=== PATIENT | female | born 1980 | race Caucasian/White ===

== ENCOUNTER 2022-07-21 18:37 | Inpatient (IN) | payer OTHER ==
--- NOTE | 2022-07-21 22:07 | ED ---
Skin/Abscess/FB HPI - General Chief complaint: Skin/Abscess/Foreign Body Stated complaint: abx reaction Time Seen by Provider: 07/21/22 22:05 Source: patient, RN notes reviewed, old records reviewed Mode of arrival: ambulatory Limitations: no limitations - History of Present Illness Initial comments: This is a 41-year-old female DF for evaluation. Patient unsure medical history recently released from incarceration after about 20 years. Patient continuing and complaining of severe left hip pain redness and erythema swelling. No drainage. No fevers. Patient has no known significant medical history multiple antibiotic ALLERGIES MD complaint: abscess/boil, other (Cellulitis) -: days(s) Location: LLE (() Severity: moderate Severity scale (1-10): 7 Quality: sharp, dull Consistency: constant Improves with: none Context: recent illness, other (Recent incarceration) Associated symptoms: denies other symptoms Treatments Prior to Arrival: none - Related Data Allergies Allergy/AdvReac Type Severity Reaction Status Date / Time acetaminophen [From Tylenol] Allergy Itching Verified 07/21/22 19:04 amoxicillin Allergy Anaphylaxis Verified 07/21/22 19:04 clavulanic acid Allergy Anaphylaxis Verified 07/21/22 19:04 [From Augmentin] Penicillins Allergy Anaphylaxis Verified 07/21/22 19:04 Sulfa (Sulfonamide Allergy Anaphylaxis Verified 07/21/22 19:04 Antibiotics) Review of Systems ROS Statement: Those systems with pertinent positive or pertinent negative responses have been documented in the HPI. ROS Other: All systems not noted in ROS Statement are negative. Past Medical History Past Medical History: No Reported History History of Any Multi-Drug Resistant Organisms: None Reported Past Surgical History: No Surgical Hx Reported Past Psychological History: No Psychological Hx Reported Smoking Status: Never smoker Past Alcohol Use History: None Reported Past Drug Use History: None Reported General Exam Limitations: no limitations General appearance: alert, in no apparent distress Head exam: Present: atraumatic, normocephalic, normal inspection Eye exam: Present: normal appearance, PERRL, EOMI. Absent: scleral icterus, conjunctival injection, periorbital swelling ENT exam: Present: normal exam, mucous membranes moist Neck exam: Present: normal inspection. Absent: tenderness, meningismus, lymphadenopathy Respiratory exam: Present: normal lung sounds bilaterally. Absent: respiratory distress, wheezes, rales, rhonchi, stridor Cardiovascular Exam: Present: regular rate, normal rhythm, normal heart sounds. Absent: systolic murmur, diastolic murmur, rubs, gallop, clicks GI/Abdominal exam: Present: soft, normal bowel sounds. Absent: distended, tenderness, guarding, rebound, rigid Extremities exam: Present: normal inspection, full ROM, normal capillary refill, other (Patient does have significant cellulitis and erythema and swelling to left hip, concern for infection). Absent: tenderness, pedal edema, joint swelling, calf tenderness Back exam: Present: normal inspection Neurological exam: Present: alert, oriented X3, CN II-XII intact Psychiatric exam: Present: normal affect, normal mood Skin exam: Present: warm, dry, intact, normal color. Absent: rash Course Vital Signs 07/21/22 19:01 Temperature 99 F Pulse Rate 96 Respiratory 18 Rate Blood Pressure 132/88 O2 Sat by Pulse 98 Oximetry - Reevaluation(s) Reevaluation #1: 07/22/22 00:51 Medical record is reviewed Reevaluation #2: 07/22/22 00:51 Patient symptoms are improved Reevaluation #3: 07/22/22 00:51 Patient informed results and questions answered - Consultations Consultation #1: Spoke with sound who will admit this patient Medical Decision Making - Medical Decision Making 41 female to the emergency department, patient presents today with left hip pain, cellulitis redness and erythema, left hip abscess. Will be admitted for IV antibiotics and surgical consult - Lab Data Result diagrams: 07/21/22 23:15 07/21/22 23:15 Lab Results 07/21/22 07/21/22 07/21/22 Range/Units 23:15 23:15 23:15 WBC 15.3 H (3.8-10.6) k/uL RBC 4.18 (3.80-5.40) m/uL Hgb 13.1 (11.4-16.0) gm/dL Hct 39.2 (34.0-46.0) % MCV 93.7 (80.0-100.0) fL MCH 31.3 (25.0-35.0) pg MCHC 33.4 (31.0-37.0) g/dL RDW 12.7 (11.5-15.5) % Plt Count 213 (150-450) k/uL MPV 9.1 Neutrophils % 71 % Lymphocytes % 17 % Monocytes % 6 % Eosinophils % 4 % Basophils % 1 % Neutrophils # 10.8 H (1.3-7.7) k/uL Lymphocytes # 2.6 (1.0-4.8) k/uL Monocytes # 0.9 (0-1.0) k/uL Eosinophils # 0.6 (0-0.7) k/uL Basophils # 0.1 (0-0.2) k/uL PT 10.3 (9.0-12.0) sec INR 0.9 (<1.2) APTT 25.1 (22.0-30.0) sec Sodium 140 (137-145) mmol/L Potassium 3.8 (3.5-5.1) mmol/L Chloride 106 (98-107) mmol/L Carbon Dioxide 23 (22-30) mmol/L Anion Gap 11 mmol/L BUN 15 (7-17) mg/dL Creatinine 0.75 (0.52-1.04) mg/dL Est GFR (CKD-EPI)AfAm >90 (>60 ml/min/1.73 sqM) Est GFR (CKD-EPI)NonAf >90 (>60 ml/min/1.73 sqM) Glucose 105 H (74-99) mg/dL Plasma Lactic Acid Yeison (0.7-2.0) mmol/L Calcium 9.2 (8.4-10.2) mg/dL Phosphorus 4.5 (2.5-4.5) mg/dL Magnesium 1.7 (1.6-2.3) mg/dL Total Bilirubin 0.5 (0.2-1.3) mg/dL AST 22 (14-36) U/L ALT 26 (4-34) U/L Alkaline Phosphatase 123 (38-126) U/L Total Protein 7.2 (6.3-8.2) g/dL Albumin 4.0 (3.5-5.0) g/dL 07/21/22 Range/Units 23:15 WBC (3.8-10.6) k/uL RBC (3.80-5.40) m/uL Hgb (11.4-16.0) gm/dL Hct (34.0-46.0) % MCV (80.0-100.0) fL MCH (25.0-35.0) pg MCHC (31.0-37.0) g/dL RDW (11.5-15.5) % Plt Count (150-450) k/uL MPV Neutrophils % % Lymphocytes % % Monocytes % % Eosinophils % % Basophils % % Neutrophils # (1.3-7.7) k/uL Lymphocytes # (1.0-4.8) k/uL Monocytes # (0-1.0) k/uL Eosinophils # (0-0.7) k/uL Basophils # (0-0.2) k/uL PT (9.0-12.0) sec INR (<1.2) APTT (22.0-30.0) sec Sodium (137-145) mmol/L Potassium (3.5-5.1) mmol/L Chloride (98-107) mmol/L Carbon Dioxide (22-30) mmol/L Anion Gap mmol/L BUN (7-17) mg/dL Creatinine (0.52-1.04) mg/dL Est GFR (CKD-EPI)AfAm (>60 ml/min/1.73 sqM) Est GFR (CKD-EPI)NonAf (>60 ml/min/1.73 sqM) Glucose (74-99) mg/dL Plasma Lactic Acid Yeison 0.5 L (0.7-2.0) mmol/L Calcium (8.4-10.2) mg/dL Phosphorus (2.5-4.5) mg/dL Magnesium (1.6-2.3) mg/dL Total Bilirubin (0.2-1.3) mg/dL AST (14-36) U/L ALT (4-34) U/L Alkaline Phosphatase (38-126) U/L Total Protein (6.3-8.2) g/dL Albumin (3.5-5.0) g/dL - EKG Data -: EKG Interpreted by Me (EKG sinus rhythm 68 OH 148 QRS 89 QTC 424) - Radiology Data Radiology results: report reviewed (CT pelvis left hip negative for significant abscess or fluid collection), image reviewed Disposition Clinical Impression: Abscess of left hip, Cellulitis of left hip Disposition: ADMITTED IP TO THIS [facility] Condition: Fair Is patient prescribed a controlled substance at d/c from ED?: No Referrals: None,Stated [Primary Care Provider] - 1-2 days Time of Disposition: 00:50
[2022-07-21] MEDS ORDERED: ACETAMINOPHEN TAB 500 MG TAB PO STA (22:17)
[2022-07-21] MEDS ORDERED: SODIUM CHLORIDE 0.9% 500 ML 500 ML IV STA (22:17)
[2022-07-21] MEDS ORDERED: SODIUM CHLORIDE 0.9% 1,000 ML IV STA (22:17)
[2022-07-21] MEDS ORDERED: VANCOMYCIN IV PER PHARMACY 1 EACH MISC MISCELLANE PRN (22:18)
[2022-07-21 23:34] LABS: Basophils # (A) 0.1 k/uL (0-0.2); Basophils % (A) 1 %; Eosinophils # (A) 0.6 k/uL (0-0.7); Eosinophils % (A) 4 %; HCT 39.2 % (34.0-46.0); HGB 13.1 gm/dL (11.4-16.0); Lymphocytes # (A) 2.6 k/uL (1.0-4.8); Lymphocytes % (A) 17 %; MCH 31.3 pg (25.0-35.0); MCHC 33.4 g/dL (31.0-37.0); MCV 93.7 fL (80.0-100.0); Mean Platelet Volume 9.1; Monocytes # (A) 0.9 k/uL (0-1.0); Monocytes % (A) 6 %; Neutrophils # (A) 10.8 k/uL (1.3-7.7); Neutrophils % (A) 71 %; Platelet Count 213 k/uL (150-450); RBC 4.18 m/uL (3.80-5.40); RDW 12.7 % (11.5-15.5); WBC 15.3 k/uL (3.8-10.6)
[2022-07-21 23:47] LABS: ALT 26 U/L (4-34); AST 22 U/L (14-36); African American GFR (CKD) >90 (>60 ml/min/1.73 sqM); Alkaline Phosphatase 123 U/L (38-126); Anion Gap 11 mmol/L; Blood Urea Nitrogen 15 mg/dL (7-17); Calcium 9.2 mg/dL (8.4-10.2); Carbon Dioxide 23 mmol/L (22-30); Chloride 106 mmol/L (98-107); Glucose 105 mg/dL (74-99); Magnesium 1.7 mg/dL (1.6-2.3); Non-African American GFR(CKD) >90 (>60 ml/min/1.73 sqM); Phosphorus 4.5 mg/dL (2.5-4.5); Potassium 3.8 mmol/L (3.5-5.1); Sodium 140 mmol/L (137-145); Total Bilirubin 0.5 mg/dL (0.2-1.3); Total Protein 7.2 g/dL (6.3-8.2)
[2022-07-21 23:54] LABS: INR 0.9 (<1.2); Partial Thromboplastin Time 25.1 sec (22.0-30.0); Prothrombin Time 10.3 sec (9.0-12.0)
[2022-07-22] MEDS ORDERED: VANCOMYCIN 1,500 MG in SODIUM CHLORIDE 0.9% 250 ML IVPB ONE ×2
--- NOTE | 2022-07-22 00:34 | CT ---
EXAMINATION TYPE: CT pelvis w con DATE OF EXAM: 07/22/2022 COMPARISON: None HISTORY: Left hip abscess. no prior on PACS CT DLP: 1009.4 mGycm Automated exposure control for dose reduction was used. CONTRAST: Performed with IV Contrast, patient injected with 100ml mL of Isovue 300. Images obtained from the iliac crests to the subtrochanteric femurs with the IV contrast. Appendix appears normal. No free fluid in the pelvis. Uterus is anteverted. No pelvic mass. Bladder d istends smoothly. No inguinal hernia there is some mild fat stranding in the left inguinal region wit h a few prominent left inguinal lymph nodes. These measure up to 1.6 cm. Sigmoid colon and rectum johnson ear normal. There is some subcutaneous edema over the posterior lateral left buttock. This area not entirely incl uded on the exam. Exam limited by patient's size. There is mild subcutaneous edema lateral to the lef t iliac bone. The hip joints are intact. Pelvic muscles are symmetric. Bony structures are intact. IMPRESSION: Mild subcutaneous edema in the left inguinal region and lateral left side of the pelvis. No drainable fluid collection. Limited exam
[2022-07-22] MEDS ORDERED: ACETAMINOPHEN TAB 325 MG TAB PO PRN (00:48)
[2022-07-22] MEDS ORDERED: MORPHINE SULFATE 4 MG/ML SYRINGE IV PRN (00:48)
[2022-07-22] MEDS ORDERED: ONDANSETRON 4 MG/2 ML VIAL IVP PRN (00:48)
[2022-07-22] MEDS ORDERED: NALOXONE 0.4 MG/ML 1 ML VIAL IV PRN (00:48)
[2022-07-22] MEDS: SODIUM CHLORIDE 0.9% 1,000 ML IV SCH ×3 (02:10→22:24)
[2022-07-22] MEDS ORDERED: VANCOMYCIN IV PER PHARMACY 1 EACH MISC MISCELLANE PRN (09:47)
--- NOTE | 2022-07-22 10:25 | P.HPIM ---
History of Present Illness 41-year-old pleasant female came in with complaints of pain and redness in the left hip area and left buttock area there is a significant induration and abscess in that area patient denied any fever chills. Patient does have some le ukocytosis. Patient denied any history of IV drug use or any trauma. Patient believes it secondary to spider bites. Patient was a incarcerated and was released recently from correction after 20 years. Patient denied any drug abuse history alcohol or nicotine use history REVIEW OF SYSTEMS: CONSTITUTIONAL: No fever, no malaise, no fatigue. HEENT: No recent visual problems or hearing problems. Denied any sore throat. CARDIOVASCULAR: No chest pain, orthopnea, PND, no palpitations, no syncope. PULMONARY: No shortness of breath, no cough, no hemoptysis. GASTROINTESTINAL: No diarrhea, no nausea, no vomiting, no abdominal pain. NEUROLOGICAL: No headaches, no weakness, no numbness. HEMATOLOGICAL: Denies any bleeding or petechiae. GENITOURINARY: Denies any burning micturition, frequency, or urgency. MUSCULOSKELETAL/RHEUMATOLOGICAL: Denies any joint pain, swelling, or any muscle pain. ENDOCRINE: Denies any polyuria or polydipsia. The rest of the 14-point review of systems is negative. PHYSICAL EXAMINATION: GENERAL: The patient is alert and oriented x3, not in any acute distress. Well developed, well nourished. HEENT: Pupils are round and equally reacting to light. EOMI. No scleral icterus. No conjunctival pallor. Normocephalic, atraumatic. No pharyngeal erythema. No thyromegaly. CARDIOVASCULAR: S1 and S2 present. No murmurs, rubs, or gallops. PULMONARY: Chest is clear to auscultation, no wheezing or crackles. ABDOMEN: Soft, nontender, nondistended, normoactive bowel sounds. No palpable organomegaly. MUSCULOSKELETAL: No joint swelling or deformity. EXTREMITIES: No cyanosis, clubbing, or pedal edema. NEUROLOGICAL: Gross neurological examination did not reveal any focal deficits. SKIN: Abscess in the left hip with in duration as mentioned above Assessment and plan -Left hip abscess will need the surgical drainage, general surgery was consulted patient was started on vancomycin as patient is ALLERGIC to penicillin -Hypothyroidism continue levothyroxine -Patient is on Keppra unsure whether patient has seizure disorder. DVT prophylaxis: Early ambulation Past Medical History Past Medical History: No Reported History History of Any Multi-Drug Resistant Organisms: None Reported Past Surgical History: No Surgical Hx Reported Past Psychological History: No Psychological Hx Reported Smoking Status: Never smoker Past Alcohol Use History: None Reported Past Drug Use History: None Reported Medications and Allergies Home Medications Medication Instructions Recorded Confirmed Type Famotidine [Pepcid] 10 mg PO DAILY 07/22/22 07/22/22 History Ibuprofen [Motrin] 400 mg PO DAILY PRN 07/22/22 07/22/22 History Levothyroxine Sodium 112 mcg PO DAILY 07/22/22 07/22/22 History levETIRAcetam [Keppra] 500 mg PO Q12HR 07/22/22 07/22/22 History Allergies Allergy/AdvReac Type Severity Reaction Status Date / Time acetaminophen [From Tylenol] Allergy Itching Verified 07/21/22 19:04 amoxicillin Allergy Anaphylaxis Verified 07/21/22 19:04 clavulanic acid Allergy Anaphylaxis Verified 07/21/22 19:04 [From Augmentin] Penicillins Allergy Anaphylaxis Verified 07/21/22 19:04 Sulfa (Sulfonamide Allergy Anaphylaxis Verified 07/21/22 19:04 Antibiotics) Physical Exam Vitals: Vital Signs Temp Pulse Resp BP Pulse Ox 07/22/22 06:43 65 16 107/73 96 07/22/22 04:23 98.0 F 87 105/78 94 L 07/21/22 19:01 99 F 96 18 132/88 98 Intake and Output 07/21/22 07/22/22 07/22/22 22:59 06:59 14:59 Other: Weight 90.718 kg Results CBC & Chem 7: 07/21/22 23:15 07/21/22 23:15 Labs: Abnormal Lab Results - Last 24 Hours (Table) 07/21/22 07/21/22 07/21/22 Range/Units 23:15 23:15 23:15 WBC 15.3 H (3.8-10.6) k/uL Neutrophils # 10.8 H (1.3-7.7) k/uL Glucose 105 H (74-99) mg/dL Plasma Lactic Acid Yeison 0.5 L (0.7-2.0) mmol/L
[2022-07-22] MEDS: levETIRAcetam 500 MG TAB PO SCH ×2 (10:43→22:24)
[2022-07-22] MEDS: LEVOTHYROXINE 112 MCG TAB PO SCH (10:43)
[2022-07-22] MEDS ORDERED: VANCOMYCIN 1,250 MG in SODIUM CHLORIDE 0.9% 250 ML IVPB SCH (12:00)
[2022-07-22] MEDS ORDERED: LIDOCAINE 1% INJ 10MG/ML (20 ML MDV) SQ ONE (12:36)
[2022-07-22] MEDS ORDERED: MORPHINE SULFATE 4 MG/ML SYRINGE IVP STA (12:39)
[2022-07-22] MEDS ORDERED: LORazepam 2 MG/ML INJ IV STA (12:40)
--- NOTE | 2022-07-22 12:54 | P.CON ---
Consult Note - . Consult date: 07/22/22 Assessment/Plan:: 41-year-old female chief complaint of pain and swelling and drainage at the left hip HPI; patient states she began noticing some redness and discomfort in the left hip area approximately 6 days ago. Patient believes she may have had a spider bite in this area. Patient denies any other known trauma or history of drug injection. This became progressively worse, patient was seen in a in a local urgent care and begun on doxycycline. Patient states this did not improve and was seen in the emergency department at our hospital last evening. Patient had a CAT scan which showed which did not reveal any deeper extension or underlying pathology. PMH; hypothyroid, possible seizure disorder PSH; no reported Medications; patient is currently on vancomycin, she received ceftriaxone in the emergency department. Physical exam: HEENT: Normocephalic, sclerae nonicteric Chest: Clear to auscultation Heart: Regular rate and rhythm Abdomen: [Nontender, nondistended] Extremities: Positive for erythema and slight fluctuance noted on the L anterior-lateral hip. small (1.5 cm) open area w small amount of purulent drainage Neuro: Alert and oriented Labs; hemoglobin 13, WBCs 15 plt 213 Cultures pending Assessment; 41-year-old female with small abscess on left hip, cellulitis Plan; we'll perform bedside I&D, under local with IV light sedation. Cultures previously obtained Continue antibiotics per your direction We'll follow
--- NOTE | 2022-07-22 13:36 | P.PCN ---
Date of Procedure: 07/22/22 Preoperative Diagnosis: Abscess left thigh Postoperative Diagnosis: Abscess left thigh Procedure(s) Performed: Incision and drainage Anesthesia: local Surgeon: Armani Patton Estimated Blood Loss (ml): 2 IV fluids (ml): 50 Pathology: none sent Condition: stable Disposition: no change Indications for Procedure: 41-year-old female admitted via the emergency department last evening, 4 small abscess of the left hip with surrounding cellulitis. Operative Findings: Small amount of purulent fluid Description of Procedure: With patient permission the left hip area was prepped and draped in a sterile fashion. 1% Xylocaine was injected in the area of the abscess. The patient received 4 mg of morphine IV, and 2 mg of Ativan prior to the procedure. A small skin incision was made over the surrounding area, a small elipse of skin was excised to facilitate drainage. A small amount of purulent fluid was noted. Using fluff gauze the wound was packed lightly and then covered. The patient tolerated the procedure well and wound care instructions were given to the nursing staff.
[2022-07-22] MEDS: FAMOTIDINE 20 MG TAB PO SCH (22:23)
--- NOTE | 2022-07-22 22:51 | P.CONS ---
History of Present Illness - Reason for Consult Consult date: 07/22/22 - History of Present Illness Patient is a 41-year-old female recently released from [facility] few days ago presenting to the hospital last evening for evaluation of painful swelling to the left hip and left gluteal area patient mention it started when she was in the present and has gotten bigger in size becoming more painful patient described the pain to be more of a sharp in nature intensity is almost 9 out of 10 with no radiation patient on presentation to the hospital did have low-grade fever of 99 daily for an height patient white count 15.3 with a left shift kidney function has been normal liver enzymes are normal patient did have a pelvic CT completed mild subcutaneous edema in the left inguinal region and lateral left side of the pelvis no drainable abscess patient was evaluated by general surgery and the patient is status post drainage of the left thigh abscess cultures have been obtained patient started on vancomycin and Rocephin infectious disease was consulted for further management of antibiotic therapy Past Medical History Past Medical History: Seizure Disorder, Thyroid Disorder Additional Past Medical History / Comment(s): hypothyroid. seizure last one 07/19/22. History of Any Multi-Drug Resistant Organisms: None Reported Past Surgical History: No Surgical Hx Reported Past Anesthesia/Blood Transfusion Reactions: No Reported Reaction Past Psychological History: No Psychological Hx Reported Smoking Status: Never smoker Past Alcohol Use History: None Reported Past Drug Use History: None Reported Medications and Allergies Home Medications Medication Instructions Recorded Confirmed Type Doxycycline Hyclate 100 mg PO BID 07/22/22 07/22/22 History Famotidine [Pepcid] 10 mg PO BID PRN 07/22/22 07/22/22 History Ibuprofen [Motrin] 400 mg PO DAILY PRN 07/22/22 07/22/22 History Lactate Enzyme Caps 1 cap PO DAILY PRN 07/22/22 07/22/22 History Levothyroxine Sodium 112 mcg PO DAILY 07/22/22 07/22/22 History levETIRAcetam [Keppra] 500 mg PO Q12H 07/22/22 07/22/22 History Allergies Allergy/AdvReac Type Severity Reaction Status Date / Time acetaminophen [From Tylenol] Allergy Rash/Hives Verified 07/22/22 11:15 amoxicillin Allergy Anaphylaxis Verified 07/22/22 11:15 clavulanic acid Allergy Anaphylaxis Verified 07/22/22 11:15 [From Augmentin] codeine Allergy Unknown Verified 07/22/22 11:15 erythromycin base Allergy Anaphylaxis Verified 07/22/22 11:15 [From Erythrocin] Penicillins Allergy Anaphylaxis Verified 07/22/22 11:15 Sulfa (Sulfonamide Allergy Anaphylaxis Verified 07/22/22 11:15 Antibiotics) Physical Exam Vitals: Vital Signs Temp Pulse Pulse Resp BP BP Pulse Ox 07/22/22 14:00 78 18 07/22/22 11:27 98.6 F 78 18 128/86 99 07/22/22 06:43 65 16 107/73 96 07/22/22 04:23 98.0 F 87 105/78 94 L 07/21/22 19:01 99 F 96 18 132/88 98 Intake and Output 07/22/22 07/22/22 07/22/22 06:59 14:59 22:59 Other: Voiding Method Toilet # Voids 2 Weight 90.718 kg Results CBC & Chem 7: 07/21/22 23:15 07/21/22 23:15 Labs: Abnormal Lab Results - Last 24 Hours (Table) 07/21/22 07/21/22 07/21/22 Range/Units 23:15 23:15 23:15 WBC 15.3 H (3.8-10.6) k/uL Neutrophils # 10.8 H (1.3-7.7) k/uL Glucose 105 H (74-99) mg/dL Plasma Lactic Acid Yeison 0.5 L (0.7-2.0) mmol/L Assessment and Plan Plan: 1patient presented hospital with a left thigh abscess and cellulitis with the symptom started when the patient was imprisoned incarcerated concern for possible MRSA due to the likely pathogen s/p drainage and cultures are currently pending 2-patient with multiple antibiotic allergies that would limit the number of anti biotics safe to use 3-patient to continue with the vancomycin for mistress while waiting for the cul ture to finalize We will follow on clinical condition and cultures to further adjust medication if needed Thank you for this consultation will follow this patient along with you Time with Patient: Greater than 30
[2022-07-23 06:37] LABS: African American GFR (CKD) >90 (>60 ml/min/1.73 sqM); Anion Gap 11 mmol/L; Blood Urea Nitrogen 10 mg/dL (7-17); Calcium 8.7 mg/dL (8.4-10.2); Carbon Dioxide 22 mmol/L (22-30); Chloride 106 mmol/L (98-107); Glucose 92 mg/dL (74-99); Non-African American GFR(CKD) >90 (>60 ml/min/1.73 sqM); Potassium 4.1 mmol/L (3.5-5.1); Sodium 139 mmol/L (137-145)
[2022-07-23] MEDS: FAMOTIDINE 20 MG TAB PO SCH ×2 (08:36→20:17)
[2022-07-23] MEDS: levETIRAcetam 500 MG TAB PO SCH ×2 (08:36→20:17)
[2022-07-23] MEDS ORDERED: FAMOTIDINE 20 MG TAB PO SCH (09:00)
[2022-07-23] MEDS ORDERED: VANCOMYCIN 1,250 MG in SODIUM CHLORIDE 0.9% 250 ML IVPB SCH (09:00)
[2022-07-23 09:39] LABS: Basophils # (A) 0.03 X 10*3/uL (0.00-0.10); Basophils % (A) 0.3 %; Eosinophils # (A) 0.49 X 10*3/uL (0.04-0.35); Eosinophils % (A) 5.2 %; HCT 38.1 % (37.2-46.3); HGB 12.8 g/dL (12.0-15.0); Immature Grans, Automated 0.3 %; Lymphocytes % (A) 20.1 %; MCH 31.5 pg (27.0-32.0); MCHC 33.6 g/dL (32.0-37.0); MCV 93.8 fL (80.0-97.0); Mean Platelet Volume 11.9 fL (9.5-12.2); Monocytes # (A) 0.75 X 10*3/uL (0.20-1.00); NRBC Per 100 WBC 0 /100 WBCS (0.0-0.0); Neutrophils # (A) 6.23 X 10*3/uL (1.80-7.70); Neutrophils % (A) 66.1 %; Platelet Count 235 X 10*3/uL (140-440); RBC 4.06 X 10*6/uL (4.10-5.20); WBC 9.43 X 10*3/uL (4.50-10.00)
[2022-07-23] MEDS: diphenhydrAMINE 25 MG CAP PO PRN (12:50)
--- NOTE | 2022-07-23 12:51 | P.PN ---
Subjective Progress Note Date: 07/23/22 Principal diagnosis: Left thigh abscess and cellulitis Patient is a 41-year-old female recently [facility] developing possible folliculitis which has developed into an abscess to the left lateral thigh that has been surgically drained and the cultures currently pending. On today's evaluation that is 07/23/2022, the patient denies having any fever or any chills, still complaining of pain to the left lateral thigh area but no worsening no chest pain shortness of breath or cough no abdominal pain no diarrhea Objective - Vital Signs Vital signs: Vital Signs Temp 98.1 F 07/23/22 07:00 Pulse 85 07/23/22 08:00 Resp 15 07/23/22 08:00 BP 113/75 07/23/22 07:00 Pulse Ox 97 07/23/22 07:00 FiO2 Intake & Output 07/22/22 07/23/22 07/23/22 18:59 06:59 18:59 Intake Total 300 300 Balance 300 300 Weight 90.718 kg Intake: Oral 300 300 Other: Voiding Method Toilet Toilet Toilet # Voids 2 3 - Exam GENERAL DESCRIPTION: A middle-aged female lying in bed in no distress RESPIRATORY SYSTEM: Unlabored breathing , decreased breath sounds at bases HEART: S1 S2 regular rate and rhythm , ABDOMEN: Soft , no tenderness EXTREMITIES: Left lateral thigh with a wound from surgical drainage of the abscess some surrounding redness but no fluctuation - Labs CBC & Chem 7: 07/23/22 05:57 07/23/22 05:57 Labs: Abnormal Lab Results - Last 24 Hours (Table) 07/23/22 Range/Units 05:57 RBC 4.06 L (4.10-5.20) X 10*6/uL Eosinophils # 0.49 H (0.04-0.35) X 10*3/uL Microbiology - Last 24 Hours (Table) 07/22/22 11:00 Gram Stain - Preliminary Hip - Left Wound Culture - Preliminary Presumptive MRSA 07/21/22 23:15 Blood Culture - Preliminary Blood No Growth after 24 hours 07/22/22 11:00 Anaerobic Culture - Preliminary Hip - Left Assessment and Plan (1) Abscess of left hip Current Visit: Yes Status: Acute Code(s): L02.416 - CUTANEOUS ABSCESS OF LEFT LOWER LIMB SNOMED Code(s): 373554 (2) Cellulitis of left hip Current Visit: Yes Status: Acute Code(s): L03.116 - CELLULITIS OF LEFT LOWER LIMB SNOMED Code(s): 21381510091859503 Plan: 1patient presented hospital with a left thigh abscess and cellulitis with the symptom started when the patient was imprisoned incarcerated concern for possible MRSA due to the likely pathogen s/p drainage and cultures are currently pending 2-patient with multiple antibiotic allergies that would limit the number of antibiotics safe to use 3-patient to continue with the vancomycin for Arlen to dose while waiting for cultures to finalize Time with Patient: Less than 30
[2022-07-23] MEDS: SODIUM CHLORIDE 0.9% 1,000 ML IV SCH ×2 (12:52→23:15)
[2022-07-23] MEDS: VANCOMYCIN 1,250 MG in SODIUM CHLORIDE 0.9% 250 ML IVPB SCH (16:36)
[2022-07-23] MEDS ORDERED: IBUPROFEN 600 MG TAB PO PRN (20:26)
--- NOTE | 2022-07-23 22:44 | P.PN ---
Subjective Progress Note Date: 07/23/22 41-year-old pleasant female came in with complaints of pain and redness in the left hip area and left buttock area there is a significant induration and abscess in that area patient denied any fever chills. Patient does have some leukocytosis. Patient denied any history of IV drug use or any trauma. Patient believes it secondary to spider bites. Patient was a incarcerated and was released recently from [facility] after 20 years. Patient denied any drug abuse history alcohol or nicotine use history 07/23/2022 Patient is seen in follow up this morning with general surgery Dr. Patton and ID following. Patient is status post bedside I and D with cultures obtained. Awaiting finalized cultures. Patient wbc is improved and afebrile. Patient is continued on IV ceftriaxone and vanco. Continued purulent drainage from the site and needs repacking. Patient with redness and sensitivity around the abscess site and recommend to tye the area with marker for close monitoring. Patient reporting some generalized itching with multiple little irritations all over the body, mostly abdomen and buttock area that patient reports has been since assisted and she has been itching and picking at. Will add benadryl and encouraged the patient to refrain from scratching. Patient denies nausea or vomiting and is gamaliel erating diet. Encouraged increased activity as tolerated. Patient denies chest pain or shortness of breath. REVIEW OF SYSTEMS: CONSTITUTIONAL: No fever, no malaise, no fatigue. CARDIOVASCULAR: No chest pain, orthopnea, PND, no palpitations, no syncope. PULMONARY: No shortness of breath, no cough, no hemoptysis. GASTROINTESTINAL: No diarrhea, no nausea, no vomiting, no abdominal pain. NEUROLOGICAL: No headaches, no weakness, no numbness. PHYSICAL EXAMINATION: GENERAL: The patient is alert and oriented x3, not in any acute distress. Well developed, well nourished. HEENT: Pupils are round and equally reacting to light. EOMI. No scleral icterus. No conjunctival pallor. Normocephalic, atraumatic. No pharyngeal erythema. No thyromegaly. CARDIOVASCULAR: S1 and S2 present. No murmurs, rubs, or gallops. PULMONARY: Chest is clear to auscultation, no wheezing or crackles. ABDOMEN: Soft, nontender, nondistended, normoactive bowel sounds. No palpable organomegaly. MUSCULOSKELETAL: No joint swelling or deformity. EXTREMITIES: No cyanosis, clubbing, or pedal edema. NEUROLOGICAL: Gross neurological examination did not reveal any focal deficits. SKIN: Abscess in the left hip with in duration as mentioned above Assessment: -Left hip abscess post surgical bedside drainage with cultures obtained -leukocytosis secondary to above, improved -Hypothyroidism -Patient is on Keppra unsure whether patient has seizure disorder. Continue for now -DVT prophylaxis: Early ambulation -Full code Plan: Patient to continue on IV abx with ID following and currently on vanco as well as ceftriaxone and awaiting finalized cultures. Patient is status post I&D of the left hip abscess from general surgery Dr. Patton Patient with itching and will add benadryl and encouraged the patient to avoid picking and scratching at the skin Recommend local wound care and changing the dressing and also using paper tape as the dressing was taped directly to the area of discomfort and redness around the abscess. Recommend marking the site with a marker and monitoring closely for any worsening of redness or induration Patient will require more than 2 night hospitalization to determine discharge antibiotics. Recommend repeat labs Social work/case management to follow in the event of requiring IV abx on discharge. The impression and plan of care has been dictated by Sona Luna, Nurse Practitioner as directed. Dr. Shira MD I have performed a history and examination and MDM of this patient, discussed the same with the dictator, and agree with the dictator's assessment and plan as written ,documented as a scribe. Based on total visit time, I have performed more than 50% of the visit. Objective - Vital Signs Vital signs: Vital Signs Temp 98.1 F 07/23/22 07:00 Pulse 85 07/23/22 08:00 Resp 15 07/23/22 08:00 BP 113/75 07/23/22 07:00 Pulse Ox 97 07/23/22 07:00 FiO2 Intake & Output 07/22/22 07/23/22 07/23/22 18:59 06:59 18:59 Intake Total 300 300 Balance 300 300 Weight 90.718 kg Intake: Oral 300 300 Other: Voiding Method Toilet Toilet Toilet # Voids 2 3 - Labs CBC & Chem 7: 07/23/22 05:57 07/23/22 05:57 Labs: Abnormal Lab Results - Last 24 Hours (Table) 07/23/22 Range/Units 05:57 RBC 4.06 L (4.10-5.20) X 10*6/uL Eosinophils # 0.49 H (0.04-0.35) X 10*3/uL Microbiology - Last 24 Hours (Table) 07/22/22 11:00 Gram Stain - Preliminary Hip - Left Wound Culture - Preliminary 07/21/22 23:15 Blood Culture - Preliminary Blood No Growth after 24 hours 07/22/22 11:00 Anaerobic Culture - Preliminary Hip - Left
[2022-07-24] MEDS: VANCOMYCIN 1,250 MG in SODIUM CHLORIDE 0.9% 250 ML IVPB SCH ×2 (00:26→09:32)
[2022-07-24] MEDS: LEVOTHYROXINE 112 MCG TAB PO SCH (05:30)
[2022-07-24] MEDS ORDERED: VANCOMYCIN TROUGH DUE 1 EACH MISC MISCELLANE ONE (08:00)
[2022-07-24 08:42] LABS: Basophils % (A) 1 %; Eosinophils # (A) 0.5 k/uL (0-0.7); Eosinophils % (A) 7 %; HCT 41.3 % (34.0-46.0); HGB 13.3 gm/dL (11.4-16.0); Lymphocytes # (A) 1.5 k/uL (1.0-4.8); Lymphocytes % (A) 20 %; MCH 30.6 pg (25.0-35.0); MCHC 32.2 g/dL (31.0-37.0); MCV 95.1 fL (80.0-100.0); Mean Platelet Volume 8.7; Monocytes # (A) 0.5 k/uL (0-1.0); Monocytes % (A) 7 %; Neutrophils # (A) 4.9 k/uL (1.3-7.7); Neutrophils % (A) 65 %; Platelet Count 235 k/uL (150-450); RBC 4.34 m/uL (3.80-5.40); RDW 12.8 % (11.5-15.5); WBC 7.5 k/uL (3.8-10.6)
[2022-07-24 08:55] LABS: African American GFR (CKD) >90 (>60 ml/min/1.73 sqM); Non-African American GFR(CKD) >90 (>60 ml/min/1.73 sqM)
[2022-07-24 08:57] LABS: African American GFR (CKD) >90 (>60 ml/min/1.73 sqM); Anion Gap 12 mmol/L; Blood Urea Nitrogen 15 mg/dL (7-17); Calcium 8.7 mg/dL (8.4-10.2); Carbon Dioxide 24 mmol/L (22-30); Chloride 105 mmol/L (98-107); Glucose 103 mg/dL (74-99); Magnesium 1.8 mg/dL (1.6-2.3); Non-African American GFR(CKD) >90 (>60 ml/min/1.73 sqM); Potassium 3.9 mmol/L (3.5-5.1); Sodium 141 mmol/L (137-145)
[2022-07-24 08:59] VITALS: BP 125/81; PULSE 81; RESP 18; TEMP 98.2
[2022-07-24] MEDS: levETIRAcetam 500 MG TAB PO SCH (09:32)
[2022-07-24] MEDS: FAMOTIDINE 20 MG TAB PO SCH (09:32)
[2022-07-24] MEDS: diphenhydrAMINE 25 MG CAP PO PRN (14:41)
--- NOTE | 2022-07-25 15:58 | P.DS ---
Providers Date of admission: 07/23/22 14:31 Expected date of discharge: 07/24/22 Attending physician: Tim Reich Consults: 07/22/22 00:48 Consult Physician Routine Consulting Provider: Armani Patton Consult Reason/Comments: abscess,cellulitis Do you want consulting provider notified?: Yes 07/22/22 09:45 Consult Physician Routine Consulting Provider: Meghan Das Consult Reason/Comments: abscess Do you want consulting provider notified?: Yes Primary care physician: Stated None Hospital Course: Final diagnosis -Left hip abscess post surgical bedside drainage with cultures showing MRSA -leukocytosis secondary to above, improved -Hypothyroidism -Patient is on Keppra unsure whether patient has seizure disorder. -DVT prophylaxis -Full code Discharge disposition Patient is being discharged in a stable condition with guarded prognosis to home. Patient will follow-up with Dr. Portillo to establish in the outpatient setting upon discharge. Patient is to follow-up with general surgery Dr. Wolf along with infectious disease Dr. Das as scheduled. Patient will continue on oral antibiotics in the form of doxycycline 100 mg twice daily for the next 14 days. Recommend continue with local wound care to the left gluteal region. Total time taken is greater than 35 minutes. Hospital course This is a 41-year-old female who was recently admitted with pain and redness of the left buttock area with significant induration and abscess that was being closely monitored. Patient also found to have leukocytosis on admission and believes it was secondary to spider bites. Patient was evaluated by general surgery Dr. Patton and underwent I&D at the bedside with culture showing MRSA. ID following and patient will continue on doxycycline 100 mg twice daily for the next 2 weeks with close outpatient follow-up in his clinic. Patient encouraged to follow up and establish with a primary care provider. Agent to continue with local wound care to the left gluteal region as instructed. Currently no reports of chest pain, shortness of breath, or palpitations. Patient is afebrile. No reports of nausea or vomiting and patient is tolerating diet. Patient will be discharged home today. Physical exam: Gen: This is a 41-year-old female awake, alert and oriented 3, well-developed, well-nourished. HEENT: Head is atraumatic, normocephalic. Pupils equal, round. Sclerae is anicteric. NECK: Supple. No JVD. No lymphadenopathy. No thyromegaly. LUNGS: Clear to auscultation. No wheezes or rhonchi. No intercostal retractions. HEART: Regular rate and rhythm. No murmur. ABDOMEN: Soft. Bowel sounds are present. No masses. No tenderness. EXTREMITIES: No pedal edema. No calf tenderness. NEUROLOGICAL: Patient is awake, alert and oriented x3. Cranial nerves 2 through 12 are grossly intact. Please refer to medication reconciliation sheet for a list of medications. The impression and plan of care has been dictated by Sona Luna, Nurse Practitioner as directed. Dr. Shira MD I have performed a history and examination and MDM of this patient, discussed the same with the dictator, and agree with the dictator's assessment and plan as written ,documented as a scribe. Based on total visit time, I have performed more than 50% of the visit. Patient Condition at Discharge: Fair Plan - Discharge Summary Discharge Rx Participant: No New Discharge Prescriptions: New Ibuprofen [Motrin] 600 mg PO TID PRN #60 tab PRN Reason: Pain diphenhydrAMINE [Benadryl] 25 mg PO TID PRN #20 cap PRN Reason: Itching Acetaminophen Tab [Tylenol] 650 mg PO Q6HR PRN tab PRN Reason: Mild Pain Or Fever > 100.5 Continue levETIRAcetam [Keppra] 500 mg PO Q12H Levothyroxine Sodium 112 mcg PO DAILY Famotidine [Pepcid] 10 mg PO BID PRN PRN Reason: Heartburn Lactate Enzyme Caps 1 cap PO DAILY PRN PRN Reason: prior to dairy Doxycycline Hyclate 100 mg PO BID 14 Days #28 cap Discontinued Ibuprofen [Motrin] 400 mg PO DAILY PRN PRN Reason: Headache Discharge Medication List Famotidine [Pepcid] 10 mg PO BID PRN 07/22/22 [History] Lactate Enzyme Caps 1 cap PO DAILY PRN 07/22/22 [History] Levothyroxine Sodium 112 mcg PO DAILY 07/22/22 [History] levETIRAcetam [Keppra] 500 mg PO Q12H 07/22/22 [History] Acetaminophen Tab [Tylenol] 650 mg PO Q6HR PRN tab 07/24/22 [Rx] Doxycycline Hyclate 100 mg PO BID 14 Days #28 cap 07/24/22 [Rx] Ibuprofen [Motrin] 600 mg PO TID PRN #60 tab 07/24/22 [Rx] diphenhydrAMINE [Benadryl] 25 mg PO TID PRN #20 cap 07/24/22 [Rx] Follow up Appointment(s)/Referral(s): Armani Patton MD [Medical Doctor] - 1 Week Kathie Wolf DO [Doctor of Osteopathic Medicine] - 08/02/22 1:30 pm Fátima Portillo MD [STAFF PHYSICIAN] - 1 Week Meghan Das MD [STAFF PHYSICIAN] - 07/31/22 2:00 pm Patient Instructions/Handouts: Abscess (GEN) Activity/Diet/Wound Care/Special Instructions: Activity Limited until follow-up Patient is to continue with oral antibiotics as prescribed and complete the course Continue with Motrin as needed for pain and inflammation May alternate with Tylenol Continue with home care for local wound care Follow-up with infectious disease in the clinic [phone] to make an appointment Follow-up Gen. surgery in 1 week Discharge Disposition: HOME WITH HOME HEALTH SERVICES
== END 2022-07-24 15:18 | disposition home health service (06) | DRG 603 ==
LOC: EC 18:37 → 6NMEDSUR 07-22 00:48 → OBSVTOIN 07-23 14:31
PROVIDERS: ADMIT Hospitalist; ATTEND Hospitalist
PROC: 0Y9D0ZX Drainage of Left Upper Leg, Open Approach, Diagnostic (ICD-10-PCS; principal; 2022-07-22)
DX: L02.416 Cutaneous abscess of left lower limb (principal); L03.116 Cellulitis of left lower limb; E03.9 Hypothyroidism, unspecified; B95.62 Methicillin resistant Staphylococcus aureus infection as the cause of diseases classified elsewhere; G40.909 Epilepsy, unspecified, not intractable, without status epilepticus; L29.9 Pruritus, unspecified; Z28.310 Unvaccinated for COVID-19; Z79.890 Hormone replacement therapy; Z79.899 Other long term (current) drug therapy; Z88.0 Allergy status to penicillin; Z88.1 Allergy status to other antibiotic agents; Z88.5 Allergy status to narcotic agent; Z88.6 Allergy status to analgesic agent; Z88.2 Allergy status to sulfonamides
CPT/HCPCS: 36415; 72193; 80048; 80053; 80202; 82565; 83605; 83735; 84100; 85025; 85610; 85730; 87040; 87070; 87075; 87077; 87186; 87205; 93005; 96361; 96365; 96366; 96367; 96375; 99285

== ENCOUNTER 2022-09-27 23:39 | Emergency (ER) | payer OTHER ==
[2022-09-28 00:15] VITALS: TEMP 98.8
--- NOTE | 2022-09-28 01:28 | XR ---
EXAMINATION TYPE: XR chest 2V DATE OF EXAM: 09/28/2022 COMPARISON: NONE HISTORY: Cough and fever TECHNIQUE: 2 views FINDINGS: Heart and mediastinum are normal. Lungs are clear. Diaphragm is normal. Bony thorax is norm al. IMPRESSION: Normal chest.
[2022-09-28] MEDS ORDERED: DEXAMETHASONE SOD PHOSPHATE 4 MG/ML 1 ML VIAL PO STA (03:03)
[2022-09-28] MEDS ORDERED: CLINDAMYCIN 150 MG CAP PO STA (03:04)
--- NOTE | 2022-09-28 03:08 | ED ---
General Adult HPI - General Chief complaint: Upper Respiratory Infection Stated complaint: Sore Throat Time Seen by Provider: 09/28/22 02:04 Source: patient, RN notes reviewed Mode of arrival: ambulatory Limitations: no limitations - History of Present Illness Initial comments: 41-year-old female presents to the emergency Department with complaints of sore throat and bilateral ear pain today. Patient states she has a congested cough as well. Reports sinus drainage last week but states that has since resolved. Has not taken anything to treat her symptoms. Reports history of recurrent ear infections. Is able to swallow without difficulty but reports accompanied by discomfort. Denies fever, chills, headache, dizziness, difficulty breathing, di fficulty swallowing, chest pain, abdominal pain, nausea, vomiting, dysuria. - Related Data Home Medications Medication Instructions Recorded Confirmed Famotidine [Pepcid] 10 mg PO BID PRN 07/22/22 07/22/22 Lactate Enzyme Caps 1 cap PO DAILY PRN 07/22/22 07/22/22 Levothyroxine Sodium 112 mcg PO DAILY 07/22/22 07/22/22 levETIRAcetam [Keppra] 500 mg PO Q12H 07/22/22 07/22/22 Previous Rx's Medication Instructions Recorded Acetaminophen Tab [Tylenol] 650 mg PO Q6HR PRN tab 07/24/22 Doxycycline Hyclate 100 mg PO BID 14 Days #28 cap 07/24/22 Ibuprofen [Motrin] 600 mg PO TID PRN #60 tab 07/24/22 diphenhydrAMINE [Benadryl] 25 mg PO TID PRN #20 cap 07/24/22 Allergies Allergy/AdvReac Type Severity Reaction Status Date / Time acetaminophen [From Tylenol] Allergy Rash/Hives Verified 09/28/22 00:15 amoxicillin Allergy Anaphylaxis Verified 09/28/22 00:15 clavulanic acid Allergy Anaphylaxis Verified 09/28/22 00:15 [From Augmentin] codeine Allergy Unknown Verified 09/28/22 00:15 erythromycin base Allergy Anaphylaxis Verified 09/28/22 00:15 [From Erythrocin] peanut Allergy Unknown Verified 09/28/22 00:15 Penicillins Allergy Anaphylaxis Verified 09/28/22 00:15 Sulfa (Sulfonamide Allergy Anaphylaxis Verified 09/28/22 00:15 Antibiotics) tomato Allergy Unknown Verified 09/28/22 00:15 Review of Systems ROS Statement: Those systems with pertinent positive or pertinent negative responses have been documented in the HPI. ROS Other: All systems not noted in ROS Statement are negative. Past Medical History Past Medical History: Seizure Disorder, Thyroid Disorder Additional Past Medical History / Comment(s): hypothyroid. seizure last one 07/19/22. History of Any Multi-Drug Resistant Organisms: None Reported Date of last positivie culture/infection: 07/23/22 MDRO Source:: Left Hip Past Surgical History: No Surgical Hx Reported Past Anesthesia/Blood Transfusion Reactions: No Reported Reaction Past Psychological History: No Psychological Hx Reported Smoking Status: Never smoker Past Alcohol Use History: None Reported Past Drug Use History: None Reported General Exam Limitations: no limitations General appearance: alert, in no apparent distress Eye exam: Present: normal appearance. Absent: scleral icterus, conjunctival injection ENT exam: Present: mucous membranes moist. Absent: normal oropharynx (erythematous, no exudate) Expanded TM/Canal exam: Erythema: Right TM, Left TM Neck exam: Present: normal inspection, full ROM. Absent: lymphadenopathy Respiratory exam: Present: normal lung sounds bilaterally. Absent: respiratory distress, wheezes, rales, rhonchi, stridor, chest wall tenderness Cardiovascular Exam: Present: regular rate, normal rhythm, normal heart sounds. Absent: systolic murmur, diastolic murmur, rubs, gallop, clicks Neurological exam: Present: alert, oriented X3, normal gait Psychiatric exam: Present: normal affect, normal mood Skin exam: Present: warm, dry, intact, normal color. Absent: rash Course Vital Signs 09/28/22 09/28/22 00:12 03:43 Temperature 98.8 F Pulse Rate 75 71 Respiratory 20 17 Rate Blood Pressure 122/75 138/67 O2 Sat by Pulse 100 99 Oximetry Medical Decision Making - Medical Decision Making This is a well-appearing 41-year-old female who presents to the emergency Department with multiple complaints including sore throat and ear pain. Physical exam findings to reveal mildly erythematous oral pharynx with no exudate, lesions, or angioedema. Bilateral tympanic membranes are mildly erythematous, but nonbulging. Patient does have a congested, nonproductive cough. Influenza and Covid are negative. Chest x-ray is unremarkable. Vital signs are stable and patient is afebrile. Given oral dexamethasone. Discussed empiric treatment with oral antibiotic for pharyngitis. However, given patient's multiple ALLERGIES and low CENTOR score, she will be discharged home with instructions on symptomatic management. Encouraged to follow up with her PCP for recheck in 48-72 hours. Return parameters discussed in detail. Patient verbalizes understanding and agrees with this plan. Attending: Nadia. - Lab Data Lab Results 09/28/22 09/28/22 09/28/22 Range/Units 00:18 00:18 00:30 Urine HCG, Qual Not Detected (Not Detectd) Coronavirus (PCR) Not Detected (Not Detectd) Influenza Type A RNA Not Detected (Not Detectd) Influenza Type B (PCR) Not Detected (Not Detectd) - Radiology Data Radiology results: report reviewed, image reviewed Two-view chest x-ray was obtained. Report was reviewed in its entirety. Impression per Dr. Song is normal chest. Disposition Clinical Impression: Pharyngitis Disposition: HOME SELF-CARE Condition: Stable Instructions (If sedation given, give patient instructions): Pharyngitis (ED) Additional Instructions: Continue warm salt water gargles. May take Motrin if needed for discomfort. Increase your intake of fluid. Follow-up with your PCP for a recheck on Saturday. Return to the emergency department with any new, worsening, or concerning symptoms such as difficulty breathing, difficulty swallowing, or inability to manage oral secretions. Is patient prescribed a controlled substance at d/c from ED?: No Referrals: Nonstaff,Physician [Primary Care Provider] - 1-2 days Time of Disposition: 03:15
[2022-09-28 03:44] VITALS: BP 138/67; PULSE 71; RESP 17
== END 2022-09-28 03:44 | disposition home or self-care (01) ==
LOC: EC 23:39
DX: J02.9 Acute pharyngitis, unspecified (principal); E03.9 Hypothyroidism, unspecified; Z79.890 Hormone replacement therapy; Z91.018 Allergy to other foods; Z20.822 Contact with and (suspected) exposure to COVID-19; Z88.2 Allergy status to sulfonamides; Z88.0 Allergy status to penicillin; Z91.010 Allergy to peanuts; Z88.1 Allergy status to other antibiotic agents; Z88.8 Allergy status to other drugs, medicaments and biological substances
CPT/HCPCS: 81025; 87502; 87635; 71046; 99283; J1100

== ENCOUNTER 2022-10-12 14:34 | Emergency (ER) | payer OTHER ==
[2022-10-12 14:46] VITALS: TEMP 97.7
[2022-10-12 15:34] LABS: Appearance,Urine Clear (Clear); Bilirubin,Urine Negative (Negative); Blood,Urine Negative (Negative); Color,Urine Yellow; Glucose,Urine (UA) Negative (Negative); Ketones,Urine Negative (Negative); Leukocyte Esterase,Urine Negative (Negative); Nitrite,Urine Negative (Negative); PH, Urine 6.5 (5.0-8.0); Protein,Urine Negative (Negative); Specific Gravity,Urine 1.024 (1.001-1.035)
--- NOTE | 2022-10-12 17:16 | XR ---
EXAMINATION TYPE: XR chest 2V DATE OF EXAM: 10/12/2022 4:46 PM COMPARISON: Chest radiographs from 09/28/2022 TECHNIQUE: XR chest 2V Frontal and lateral views of the chest. CLINICAL INDICATION:Female, 41 years old with history of difficulty breathing; FINDINGS: Lungs/Pleura: There is no evidence of pleural effusion, focal consolidation, or pneumothorax. Pulmonary vascularity: Unremarkable. Heart/mediastinum: Cardiomediastinal silhouette is unremarkable. Musculoskeletal: No acute osseous pathology. IMPRESSION: No acute cardiopulmonary disease/process.
--- NOTE | 2022-10-12 17:50 | ED ---
General Adult HPI - General Chief complaint: Upper Respiratory Infection Stated complaint: vomiting, chest congestion Time Seen by Provider: 10/12/22 17:30 Source: patient, RN notes reviewed, old records reviewed Mode of arrival: ambulatory Limitations: no limitations - History of Present Illness Initial comments: Patient is a 41-year-old female who presents emergency Department complaining of flulike symptoms for the last few days. States it is been 5-7 days. Has had upper respiratory symptoms as well as intermittent diarrhea and nausea with nonb ilious nonbloody emesis. Diarrhea is nonbloody. Presents over concern for possible infection. She has lost her taste. Denies any fevers. Denies any abdominal pain, chest pain, shortness of breath. Has no other acute complaint this time. Presents for further evaluation. - Related Data Home Medications Medication Instructions Recorded Confirmed Famotidine [Pepcid] 10 mg PO BID PRN 07/22/22 07/22/22 Lactate Enzyme Caps 1 cap PO DAILY PRN 07/22/22 07/22/22 Levothyroxine Sodium 112 mcg PO DAILY 07/22/22 07/22/22 levETIRAcetam [Keppra] 500 mg PO Q12H 07/22/22 07/22/22 Previous Rx's Medication Instructions Recorded Acetaminophen Tab [Tylenol] 650 mg PO Q6HR PRN tab 07/24/22 Doxycycline Hyclate 100 mg PO BID 14 Days #28 cap 07/24/22 Ibuprofen [Motrin] 600 mg PO TID PRN #60 tab 07/24/22 diphenhydrAMINE [Benadryl] 25 mg PO TID PRN #20 cap 07/24/22 Ondansetron Odt [Zofran Odt] 4 mg PO Q8HR PRN 2 Days #6 tab 10/12/22 Allergies Allergy/AdvReac Type Severity Reaction Status Date / Time acetaminophen [From Tylenol] Allergy Rash/Hives Verified 09/28/22 00:15 amoxicillin Allergy Anaphylaxis Verified 09/28/22 00:15 clavulanic acid Allergy Anaphylaxis Verified 09/28/22 00:15 [From Augmentin] codeine Allergy Unknown Verified 09/28/22 00:15 erythromycin base Allergy Anaphylaxis Verified 09/28/22 00:15 [From Erythrocin] peanut Allergy Unknown Verified 09/28/22 00:15 Penicillins Allergy Anaphylaxis Verified 09/28/22 00:15 Sulfa (Sulfonamide Allergy Anaphylaxis Verified 09/28/22 00:15 Antibiotics) tomato Allergy Unknown Verified 09/28/22 00:15 Review of Systems ROS Statement: Those systems with pertinent positive or pertinent negative responses have been documented in the HPI. Review of Systems: CONST: Denies fever EYES: Denies blurry vision ENT: Endorses nasal congestion C/V: Denies Chest pain RESP: Denies shortness of breath GI: Denies abdominal pain : Denies dysuria SKIN: Denies rash. MSK: Denies joint pain. NEURO: Denies headache ROS Other: All systems not noted in ROS Statement are negative. Past Medical History Past Medical History: Seizure Disorder, Thyroid Disorder Additional Past Medical History / Comment(s): hypothyroid. seizure last one 07/19/22. History of Any Multi-Drug Resistant Organisms: None Reported Date of last positivie culture/infection: 07/23/22 MDRO Source:: Left Hip Past Surgical History: No Surgical Hx Reported Past Anesthesia/Blood Transfusion Reactions: No Reported Reaction Past Psychological History: No Psychological Hx Reported Smoking Status: Never smoker Past Alcohol Use History: None Reported Past Drug Use History: None Reported General Exam - General Exam Comments Initial Comments: General: Appears in no acute distress. HEAD: Normal with no signs of head trauma. EYES: PERRLA, EOMI, conjunctiva normal, no discharge. ENT: Hearing grossly intact, normal oropharynx. RESPIRATORY: Clear breath sounds bilaterally. No wheezes, rales, or rhonchi. C/V: Regular rate and rhythm. S1 and S2 auscultated, no edema, peripheral pulses 2+ and intact throughout ABD: Abd is soft, nontender, nondistended EXT: Normal range of motion, no obvious deformity SKIN: No rashes or lesions observed on exposed skin. NEURO: Alert and oriented 4. Limitations: no limitations Course Vital Signs 10/12/22 10/12/22 14:43 17:55 Temperature 97.7 F Pulse Rate 93 80 Respiratory 20 18 Rate Blood Pressure 126/73 132/78 O2 Sat by Pulse 99 100 Oximetry Medical Decision Making - Medical Decision Making Based on the patient's presentation and physical exam, I'm concerned for infectious etiology for her current symptoms. Workup was started in triage and was remarkable for a positive flu swab. RSV and COVID-19 negative. Urinalysis unremarkable including negative ketones. I evaluated the patient after workup was completed. I updated her on the results. Does not appear that she is overly dehydrated based on urine lacking ketones as well as normal vital signs. I did discuss with her that she states she has been sick for greater than 3 days I do not believe that Tamiflu is of benefit. Chest x-ray was obtained and interpreted by myself as revealing no acute cardio or process, no infiltrate. I do believe it is safer to be discharged home at this time. Discussed supportive care including hydration. She was in agreement this plan. She'll be given ODT Zofran to take as needed. Strict return precautions were discussed. I will provide the patient with a prescription for ODT Zofran. I instructed the patient to follow up with their PCP in the next 1-3 days. I explained that the patient should return to the emergency department if they experience any worsening symptoms. Strict return precautions were discussed with the patient. The patient expressed understanding of these instructions. I answered all questions that the patient had. The patient was discharged home in good condition with their prescriptions and follow up information. - Lab Data Lab Results 10/12/22 10/12/22 10/12/22 Range/Units 14:53 14:53 14:53 Urine Color Yellow Urine Appearance Clear (Clear) Urine pH 6.5 (5.0-8.0) Ur Specific [place]iba 1.024 (1.001-1.035) Urine Protein Negative (Negative) Urine Glucose (UA) Negative (Negative) Urine Ketones Negative (Negative) Urine Blood Negative (Negative) Urine Nitrite Negative (Negative) Urine Bilirubin Negative (Negative) Urine Urobilinogen 2.0 (<2.0) mg/dL Ur Leukocyte Esterase Negative (Negative) Urine HCG, Qual Not Detected (Not Detectd) Influenza Type A (PCR) Detected A (Not Detectd) Influenza Type B (PCR) Not Detected (Not Detectd) RSV (PCR) Not Detected (Not Detectd) SARS-CoV-2 (PCR) Not Detected (Not Detectd) Disposition Clinical Impression: Influenza A Disposition: HOME SELF-CARE Condition: Good Instructions (If sedation given, give patient instructions): Influenza (ED) Prescriptions: Ondansetron Odt [Zofran Odt] 4 mg PO Q8HR PRN 2 Days #6 tab PRN Reason: Nausea Is patient prescribed a controlled substance at d/c from ED?: No Referrals: Fátima Portillo MD [Primary Care Provider] - 1-2 days Time of Disposition: 17:45
[2022-10-12 17:57] VITALS: BP 132/78; PULSE 80; RESP 18
== END 2022-10-12 17:57 | disposition home or self-care (01) ==
LOC: EC 14:34
DX: J10.1 Influenza due to other identified influenza virus with other respiratory manifestations (principal); E03.9 Hypothyroidism, unspecified; G40.909 Epilepsy, unspecified, not intractable, without status epilepticus; Z88.0 Allergy status to penicillin; Z88.2 Allergy status to sulfonamides; Z88.6 Allergy status to analgesic agent; Z91.018 Allergy to other foods; Z91.010 Allergy to peanuts; Z79.890 Hormone replacement therapy; Z88.5 Allergy status to narcotic agent; Z20.822 Contact with and (suspected) exposure to COVID-19
CPT/HCPCS: 71046; 81003; 81025; 87636; 99284

== ENCOUNTER 2023-03-18 14:09 | Emergency (ER) | payer BC, OTHER ==
[2023-03-18] MEDS ORDERED: IBUPROFEN 600 MG TAB PO STA (15:16)
--- NOTE | 2023-03-18 15:19 | ED ---
General Adult HPI - General Chief complaint: Upper Respiratory Infection Stated complaint: tightness chest/sob/fever Time Seen by Provider: 03/18/23 15:07 Source: patient, RN notes reviewed Mode of arrival: ambulatory Limitations: no limitations - History of Present Illness Initial comments: 42-year-old female with past medical history sick significant for asthma presents the emergency department with a chief complaint of fever. She is complaining of accompanying symptoms of generalized body aches, fever headache, cough, sore throat. She does report that her nephews were at her house over the weekend with the same symptoms. She did not receive her influenza vaccination this year. She has not taken Tylenol or Motrin for his symptoms. - Related Data Home Medications Medication Instructions Recorded Confirmed Famotidine [Pepcid] 10 mg PO BID PRN 07/22/22 07/22/22 Lactate Enzyme Caps 1 cap PO DAILY PRN 07/22/22 07/22/22 Levothyroxine Sodium 112 mcg PO DAILY 07/22/22 07/22/22 levETIRAcetam [Keppra] 500 mg PO Q12H 07/22/22 07/22/22 Previous Rx's Medication Instructions Recorded Acetaminophen Tab [Tylenol] 650 mg PO Q6HR PRN tab 07/24/22 Doxycycline Hyclate 100 mg PO BID 14 Days #28 cap 07/24/22 Ibuprofen [Motrin] 600 mg PO TID PRN #60 tab 07/24/22 diphenhydrAMINE [Benadryl] 25 mg PO TID PRN #20 cap 07/24/22 Ondansetron Odt [Zofran Odt] 4 mg PO Q8HR PRN 2 Days #6 tab 10/12/22 Allergies Allergy/AdvReac Type Severity Reaction Status Date / Time acetaminophen [From Tylenol] Allergy Rash/Hives Verified 03/18/23 14:45 amoxicillin Allergy Anaphylaxis Verified 03/18/23 14:45 clavulanic acid Allergy Anaphylaxis Verified 03/18/23 14:45 [From Augmentin] codeine Allergy Unknown Verified 03/18/23 14:45 erythromycin base Allergy Anaphylaxis Verified 03/18/23 14:45 [From Erythrocin] peanut Allergy Unknown Verified 03/18/23 14:45 Penicillins Allergy Anaphylaxis Verified 03/18/23 14:45 Sulfa (Sulfonamide Allergy Anaphylaxis Verified 03/18/23 14:45 Antibiotics) tomato Allergy Unknown Verified 03/18/23 14:45 Review of Systems ROS Statement: Those systems with pertinent positive or pertinent negative responses have been documented in the HPI. ROS Other: All systems not noted in ROS Statement are negative. Past Medical History Past Medical History: Seizure Disorder, Thyroid Disorder Additional Past Medical History / Comment(s): hypothyroid. seizure last one 07/19/22. History of Any Multi-Drug Resistant Organisms: None Reported Date of last positivie culture/infection: 07/23/22 MDRO Source:: Left Hip Past Surgical History: No Surgical Hx Reported Past Anesthesia/Blood Transfusion Reactions: No Reported Reaction Past Psychological History: No Psychological Hx Reported Smoking Status: Current every day smoker Past Alcohol Use History: None Reported Past Drug Use History: None Reported General Exam - General Exam Comments Initial Comments: General: Alert, in no acute distress patient is febrile Head: atraumatic normocephalic. Eyes PERRL, EOMI intact, mucous membranes moist Respiratory: Lungs clear to auscultation bilaterally Cardiovascular: Tachycardic Abdominal: Soft without guarding or rebound Extremities: Normal inspection with full range of motion and normal capillary refill Neuroogic: alert and oriented 3, CN II-XII intact, able to ambulate with steady gait Skin: warm dry and intact with normal color Limitations: no limitations Course Vital Signs 03/18/23 03/18/23 14:42 17:28 Temperature 100.2 F H 97.5 F L Pulse Rate 127 H 104 H Respiratory 20 18 Rate Blood Pressure 110/68 121/74 O2 Sat by Pulse 94 L 97 Oximetry EKG Findings - EKG Comments: EKG Findings:: I interpreted the following: EKG performed at 14:40 rate 1 22 bpm and sinus tachycardia, CT interval 134, QRS duration 95, QT/QTc 300/373 Medical Decision Making - Medical Decision Making Was pt. sent in by a medical professional or institution (, PA, LINING MACHINE OPERATOR, urgent care, hospital, or half-way...) When possible be specific @ -[No] Did you speak to anyone other than the patient for history (EMS, parent, family, police, friend...)? What history was obtained from this source @ -[No] Did you review nursing and triage notes (agree or disagree)? Why? @ -[I reviewed and agree with nursing and triage notes] Were old charts reviewed (outside hosp., previous admission, EMS record, old EKG, old radiological studies, urgent care reports/EKG's, half-way records)? Report findings @ -[No old charts were reviewed] Differential Diagnosis (chest pain, altered mental status, abdominal pain women, abdominal pain men, vaginal bleeding, weakness, fever, dyspnea, syncope, headache, dizziness, GI bleed, back pain, seizure, CVA, palpatations, mental health, musculoskeletal)? @ -[not applicable] EKG interpreted by me (3pts min.). @ -[As above] X-rays interpreted by me (1pt min.). @ -[None done] CT interpreted by me (1pt min.). @ -[None done] U/S interpreted by me (1pt. min.). @ -[None done] What testing was considered but not performed or refused? (CT, X-rays, U/S, labs)? Why? @ -[None] What meds were considered but not given or refused? Why? @ -[None] Did you discuss the management of the patient with other professionals (professionals i.e. , PA, LINING MACHINE OPERATOR, lab, RT, psych nurse, social service manager, case assistant, teacher, licensing officer, renal case manager)? Give summary @ -[No] Was smoking cessation discussed for >3mins.? @ -[No] Was critical care preformed (if so, how long)? @ -[No] Were there social determinants of health that impacted care today? How? (Homelessness, low income, unemployed, alcoholism, drug addiction, transportation, low edu. Level, literacy, decrease access to med. care, long term, rehab)? @ -[No] Was there de-escalation of care discussed even if they declined (Discuss DNR or withdrawal of care, Hospice)? DNR status @ -[No] What co-morbidities impacted this encounter? (DM, HTN, Smoking, COPD, CAD, Cancer, CVA, ARF, Chemo, Hep., AIDS, mental health diagnosis, sleep apnea, m orbid obesity)? @ -[None] Was patient admitted / discharged? Hospital course, mention meds given and route, prescriptions, significant lab abnormalities, going to OR and other pertinent info. @ - -Discharged. This is a 42-year-old female who presents to the emergency department with fever. Patient had a thorough history and physical exam performed while in the ED. Physical exam reveals heart rate regular rate and rhythm, lungs clear to auscultation bilaterally abdomen is soft and nontender.. Patient had lab work and imaging performed on the ED which were essentially unremarkable. I discussed the results in detail with the patient verbalized understanding and all questions were addressed. He was encouraged to follow up with his PCP in 1-2 days. Return precautions were discussed at length. Patient discharged in stable condition. Case discussed with Dr. Vazquez [facility] who agrees with plan of care Undiagnosed new problem with uncertain prognosis? @ -[No] Drug Therapy requiring intensive monitoring for toxicity (Heparin, Nitro, Insulin, Cardizem)? @ -[No] Were any procedures done? @ -[No] Diagnosis/symptom? @ - Fever - Generalized fatigue Acute, or Chronic, or Acute on Chronic? @ -Acute Uncomplicated (without systemic symptoms) or Complicated (systemic symptoms)? @ -uncomplicated Side effects of treatment? @ -[No] Exacerbation, Progression, or Severe Exacerbation? @ -[No] Poses a threat to life or bodily function? How? (Chest pain, [place], [place], pneumonia, PE, COPD, DKA, ARF, appy, cholecystitis, CVA, Diverticulitis, Homicidal, Suicidal, threat to staff... and all critical care pts) @ -low likelihood - Lab Data Lab Results 03/18/23 03/18/23 Range/Units 15:30 15:30 Influenza Type A (PCR) Not Detected (Not Detectd) Influenza Type B (PCR) Not Detected (Not Detectd) RSV (PCR) Not Detected (Not Detectd) SARS-CoV-2 (PCR) Not Detected (Not Detectd) Group A Strep (PCR) NOT DETECTED (Not Detectd) Disposition Clinical Impression: Common cold Disposition: HOME SELF-CARE Condition: Stable Instructions (If sedation given, give patient instructions): Upper Respiratory Infection (ED) Additional Instructions: Please return to the nearest emergency department if symptoms worsen or persist Is patient prescribed a controlled substance at d/c from ED?: No Referrals: None,Stated [REFERRING] - 1-2 days Time of Disposition: 17:22
--- NOTE | 2023-03-18 15:49 | XR ---
EXAMINATION TYPE: XR chest 2V DATE OF EXAM: 03/18/2023 COMPARISON: NONE TECHNIQUE: PA and lateral views submitted. HISTORY: fever, cough FINDINGS: The lungs are clear and there is no pneumothorax, pleural effusion, or focal pneumonia. Heart size normal and no overt failure. Osseous structures acts. Coarsened interstitium.. IMPRESSION: 1. Orally for bronchitis or mild interstitial pneumonitis.
[2023-03-18 17:30] VITALS: BP 121/74; PULSE 104; RESP 18; TEMP 97.5
== END 2023-03-18 17:29 | disposition home or self-care (01) ==
LOC: EC 14:09
DX: J00 Acute nasopharyngitis [common cold] (principal); E03.9 Hypothyroidism, unspecified; J45.909 Unspecified asthma, uncomplicated; F17.200 Nicotine dependence, unspecified, uncomplicated; Z79.890 Hormone replacement therapy; Z88.0 Allergy status to penicillin; Z88.1 Allergy status to other antibiotic agents; Z88.2 Allergy status to sulfonamides; Z88.6 Allergy status to analgesic agent; Z88.8 Allergy status to other drugs, medicaments and biological substances; Z20.822 Contact with and (suspected) exposure to COVID-19
CPT/HCPCS: 71046; 87636; 87651; 93005; 99285